=== PATIENT | male | born 1950 | race African-American/Black ===

== ENCOUNTER 2024-01-22 02:29 | Emergency (ER) | payer MEDICARE ==
[~2024-01-22] VITALS: Ht 177.8 cm; Wt 82.0 kg
[2024-01-22 02:33] VITALS: TEMP 98.9
[2024-01-22 03:18] VITALS: PULSE 78; RESP 18; O2SAT 91
[2024-01-22] MEDS: IPRATROPIUM/ALBUTEROL 0.5-3(2.5)MG/3ML NEB HHN ONE (03:18)
[2024-01-22 03:47] LABS: WHITE BLOOD COUNT 8.4 x1000/uL (4.5-11.0)
[2024-01-22 03:52] LABS: HEMATOCRIT. 27.9 % (42.0-52.0); HEMOGLOBIN. 8.2 g/dL (14.0-18.0); MEAN CORPUSCULAR HEMOGLOBIN 21.4 pg (28.0-32.0); MEAN CORPUSCULAR HGB CONC 29.3 g/dL (31.0-37.0); MEAN CORPUSCULAR VOLUME 72.9 fL (80.0-94.0); MEAN PLATELET VOLUME 8.1 fl (7.4-10.4); PLATELET 210 x1000/uL (130-400); RED BLOOD CELL COUNT 3.83 mill/uL (4.7-6.1); RED CELL DISTRIBUTION WIDTH 19.6 % (11.6-14.6)
[2024-01-22 03:55] LABS: DIFFERENTIAL COMMENT 1
[2024-01-22 03:56] LABS: PARTIAL THROMBOPLASTIN TIME 24.4 sec (23.4-31.0); PROTHROMBIN TIME 10.8 sec (9.6-11.0)
[2024-01-22 04:28] LABS: CHLORIDE 107 mEq/L (98-107); POTASSIUM 3.3 mEq/L (3.5-5.1); SODIUM 141 mEq/L (136-145)
[2024-01-22 04:29] LABS: CALCIUM 8.7 mg/dL (8.7-10.4); CARBON DIOXIDE 28 mEq/L (21-32)
[2024-01-22] MEDS: METHYLPREDNISOLONE SOD SUCC 125MG/2ML (ACT-O-VIAL) IV STA (04:32)
[2024-01-22] MEDS: AZITHROMYCIN 500MG/250ML 250 ML IV ONE (04:32)
[2024-01-22 04:34] LABS: CREATININE 0.9 mg/dL (0.6-1.3); GLUCOSE 133 mg/dL (70-105); UREA NITROGEN BLOOD 5 mg/dL (9-23)
[2024-01-22 04:36] LABS: TROPONIN I HIGH SENSITIVITY 4 ng/L (3.0-53)
[2024-01-22 04:49] LABS: HYPOCHROMASIA 1+; MICROCYTOSIS 1+; PLATELET ESTIMATE NORMAL
[2024-01-22] MEDS: CEFTRIAXONE 1GM/50ML 50 ML IV ONE (04:49)
[2024-01-22] MEDS: POTASSIUM CHLORIDE 20MEQ TABLET SR PO ONE (04:49)
[2024-01-22] MEDS ORDERED: AZIT250T12 MT (05:21)
[2024-01-22] MEDS ORDERED: ALBU6.7H15 INH (05:21)
[2024-01-22] MEDS ORDERED: AMOX1TAB16 MT (05:21)
[2024-01-22] MEDS ORDERED: P50 MT (05:21)
[2024-01-22] MEDS ORDERED: FERR324T4 MT (05:23)
[2024-01-22 05:54] LABS: TROPONIN I HIGH SENSITIVITY 4 ng/L (3.0-53)
[2024-01-22 07:05] VITALS: BP 105/58; PULSE 72; RESP 18; O2SAT 100
== END 2024-01-22 07:10 | disposition home or self-care (01) ==
LOC: ER 02:29
DX: J40 Bronchitis, not specified as acute or chronic (principal); J44.1 Chronic obstructive pulmonary disease with (acute) exacerbation; F17.210 Nicotine dependence, cigarettes, uncomplicated; Z79.899 Other long term (current) drug therapy
CPT/HCPCS: 99285; 96365; 71045; 96375; 80048; 83880; 85025; 85610; 85730; 84484; 36415; 94640; 93005; 96368; J0456; J0696; J2919

== ENCOUNTER 2024-04-13 12:17 | Emergency (ER) | payer MEDICARE ==
[~2024-04-13] VITALS: Ht 175.3 cm; Wt 60.0 kg
[~2024-04-13 12:17] MED LIST: ALBU6.7H15 INH; AMOX1TAB16 MT; AZIT250T12 MT; FERR324T4 MT; P50 MT
[2024-04-13 12:33] VITALS: TEMP 97.9; O2SAT 100
[2024-04-13 12:56] VITALS: BP 134/74; PULSE 88; RESP 16; O2SAT 99
[2024-04-13] MEDS ORDERED: ALBU18HF2 IH (15:41)
== END 2024-04-13 12:58 | disposition home or self-care (01) ==
LOC: ER 12:17
DX: Z76.0 Encounter for issue of repeat prescription (principal); J45.909 Unspecified asthma, uncomplicated
CPT/HCPCS: 99281

== ENCOUNTER 2025-01-10 17:21 | Emergency (ER) | payer MEDICARE ==
[~2025-01-10] VITALS: Ht 177.8 cm; Wt 70.0 kg
[~2025-01-10 17:21] MED LIST changes: +ALBU18HF2 IH
[2025-01-10 17:23] VITALS: TEMP 37; O2SAT 100
[2025-01-10] MEDS ORDERED: ALBU18HF2 IH (17:43)
[2025-01-10] MEDS ORDERED: P50 MT (17:43)
[2025-01-10 17:51] VITALS: BP 126/72; PULSE 95; RESP 16; O2SAT 93
[2025-01-10] MEDS: PREDNISONE 20MG TABLET PO STA (18:05)
[2025-01-10] MEDS: ALBUTEROL 6.7GM HFA INHALER ORI ONE (18:12)
== END 2025-01-10 18:20 | disposition home or self-care (01) ==
LOC: ER 17:21
DX: J44.1 Chronic obstructive pulmonary disease with (acute) exacerbation (principal); Z79.899 Other long term (current) drug therapy
CPT/HCPCS: 99283; J7512